=== PATIENT | male | born 1975 | race Caucasian/White ===

== ENCOUNTER 2024-10-22 08:40 | Emergency (ER) | payer OTHER, SELFPAY ==
[2024-10-22 08:51] VITALS: BP 130/92
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
== END 2024-10-22 10:23 | disposition home or self-care (01) ==
LOC: EMR 08:40
PROVIDERS: EMERGENCY PHYSICIAN Emergency Medicine; FAMILY PHYSICIAN Family Medicine
DX: S46.912A Strain of unspecified muscle, fascia and tendon at shoulder and upper arm level, left arm, initial encounter (principal); S50.312A Abrasion of left elbow, initial encounter; V00.831A Fall from motorized mobility scooter, initial encounter
CPT/HCPCS: 99283; 73030